=== PATIENT | male | born 1960 | race Caucasian/White ===

== ENCOUNTER 2016-11-21 12:32 | Inpatient (IN) | payer BC ==
[2016-11-21 12:32] VITALS: BMI 28.3
[2016-11-21] MEDS ORDERED: Sodium Chloride 0.9% 1,000 ML IV ONE ×2 (13:31→17:21)
[2016-11-21] MEDS ORDERED: Iohexol 240 (50 ml) PO STA (13:31)
[2016-11-21] MEDS ORDERED: Iohexol 240 (50 ml) ONE (13:40)
[2016-11-21] MEDS ORDERED: Sodium Chloride 0.9% 1,000 ML ONE ×2 (13:41→17:25)
[2016-11-21 14:21] LABS: VENOUS BLOOD GAS BASE EXCESS 4.4 mmol/L (0.0-2.0); VENOUS BLOOD GAS PCO2 52 mmHg (40-60); VENOUS BLOOD PH 7.38 (7.32-7.43)
[2016-11-21 15:51] LABS: BASO # 0.1 K/uL (0.0-0.2); BASO % 0.6 % (0.0-2.0); EOS # 0.1 K/uL (0.0-0.7); EOS % 0.5 % (0.0-4.0); HEMATOCRIT 46.7 % (35.0-51.0); LYMPH # 1.4 K/uL (1.0-4.3); LYMPH % 9.3 % (20.0-40.0); MEAN CELL VOLUME 89.4 fL (80.0-94.0); MEAN CORPUSCULAR HEMOGLOBIN 29.3 pg (27.0-31.0); MEAN CORPUSCULAR HGB CONC 32.8 g/dL (33.0-37.0); MEAN PLATELET VOLUME 8.1 fL (7.2-11.7); MONO # 0.9 K/uL (0.0-0.8); MONO % 6.3 % (0.0-10.0); RED CELL DISTRIBUTION WIDTH 15.7 % (11.5-14.5)
[2016-11-21 16:02] LABS: PLATELET COUNT 337 K/uL (130-400); WHITE BLOOD COUNT 14.6 K/uL (4.8-10.8)
[2016-11-21 16:03] LABS: CHLORIDE 101 mmol/L (98-107); POTASSIUM 3.7 mmol/L (3.6-5.2); SODIUM 141 mmol/L (132-148)
[2016-11-21 16:05] LABS: ALB/GLOB RATIO 1.3 (1.0-2.1); ALKALINE PHOSPHATASE 81 U/L (38-126); AST/SGOT 40 U/L (17-59); BILIRUBIN,TOTAL 1.3 mg/dL (0.2-1.3); CARBON DIOXIDE 26 mmol/L (22-30); GFR AFRICAN-AMERICAN > 60; TOTAL PROTEIN 8.1 g/dL (6.3-8.3)
[2016-11-21 16:06] LABS: ALT/SGPT 31 U/L (21-72); BLOOD UREA NITROGEN 18 mg/dL (9-20); CALCIUM 9.2 mg/dl (8.6-10.4); GLUCOSE,RANDOM 110 mg/dL (75-110)
[2016-11-21] MEDS ORDERED: Morphine 4 MG/ML VIAL ONE (16:19)
[2016-11-21 16:20] LABS: RBC URINE 3 /hpf (0-3); URINE BILIRUBIN NEGATIVE (NEGATIVE); URINE BLOOD NEGATIVE (NEGATIVE); URINE COLOR Yellow (YELLOW); URINE GLUCOSE (UA) NORMAL (Normal); URINE KETONE 1+ mg/dL (NEGATIVE); URINE LEUKOCYTE ESTERASE NEG Leu/uL (Negative); URINE PROTEIN NEGATIVE (NEGATIVE); URINE UROBILINOGEN NORMAL mg/dL (0.2-1.0); WBC URINE 2 /hpf (0-5)
[2016-11-21] MEDS ORDERED: Iohexol 350mg/ml 100 ML ONE (16:50)
--- NOTE | 2016-11-21 17:14 | CT ---
PROCEDURE: CT Abdomen and Pelvis with contrast HISTORY: abd pain, vomiting, diarrhea COMPARISON: Comparison is made to the previous study dated 02/11/2016 TECHNIQUE: Contrast dose: 100 mL Omnipaque Radiation dose: Total exam DLP = 402.3 mGy-cm. This CT exam was performed using one or more of the following dose reduction techniques: Automated exposure control, adjustment of the mA and/or kV according to patient size, and/or use of iterative reconstruction technique. FINDINGS: LOWER THORAX: Unremarkable. LIVER: Unremarkable. No gross lesion or ductal dilatation. GALLBLADDER AND BILE DUCTS: Unremarkable. PANCREAS: Unremarkable. No gross lesion or ductal dilatation. SPLEEN: Unremarkable. ADRENALS: Unremarkable. No mass. KIDNEYS AND URETERS: Unremarkable. No hydronephrosis. No solid mass. VASCULATURE: Unremarkable. No aortic aneurysm. BOWEL: Agzgrx-op-ubmxomkiug dilated small bowel loops in the mid and upper abdomen demonstrate mild to moderate wall thickening. The distal small bowel loops are partially collapse. Findings could represent enteritis. The possibility of low-grade bowel obstruction is less likely but not totally excluded. No evidence of pneumatosis. No evidence of colitis. APPENDIX: Normal appendix. PERITONEUM: Small amount of free fluid seen in the lower abdomen and pelvis. LYMPH NODES: Unremarkable. No enlarged lymph nodes. BLADDER: Unremarkable. REPRODUCTIVE: Prostate is mildly enlarged. BONES: No acute fracture. OTHER FINDINGS: None. IMPRESSION: Dilated proximal and mid small bowel loops demonstrate shgk-[id number] wall thickening. The distal small bowel is partially collapse. Findings could represent enteritis versus low-grade bowel obstruction. If clinically warranted follow-up study may be obtained. Small amount of free fluid in the lower abdomen and upper pelvis. Otherwise no evidence of acute pathology in the abdomen and pelvis.
--- NOTE | 2016-11-21 18:12 | C.PDOC ---
Time Seen by Provider: 11/21/16 13:09 Chief Complaint (Nursing): Abdominal Pain History Per: Patient Onset/Duration Of Symptoms: Hrs (since last night) Current Symptoms Are (Timing): Still Present Severity: Severe Location Of Pain/Discomfort: Diffuse Quality Of Discomfort: "Pain" Associated Symptoms: Nausea, Vomiting, Diarrhea Alleviating Factors: None Last Bowel Movement: Today Recent travel outside of the [place]: Yes (Just returned from [facility] last night) Additional History Per: Prior Records Past Medical History Reviewed: Historical Data, Nursing Documentation, Vital Signs Vital Signs: Last Vital Signs Temp 98.2 F 11/21/16 12:42 Pulse 104 H 11/21/16 14:20 Resp 20 11/21/16 14:20 BP 144/90 11/21/16 12:42 Pulse Ox 96 11/21/16 14:20 - Medical History PMH: Arthritis, Hypercholesterolemia, Rheumatoid Arthritis Surgical History: No Surg Hx - [facility] Procedures INTRODUCTION OF SERUM/TOX/VACCINE INTO MUSCLE, PERC APPROACH (02/11/16) Family History: States: Unknown Family Hx - Social History Hx Alcohol Use: No Hx Substance Use: No - Immunization History Hx Tetanus Toxoid Vaccination: No Hx Influenza Vaccination: No Hx Pneumococcal Vaccination: No Review Of Systems Except As Marked, All Systems Reviewed And Found Negative. Constitutional: Negative for: Fever Cardiovascular: Negative for: Chest Pain Respiratory: Positive for: Cough. Negative for: Shortness of Breath, Hemoptysis Gastrointestinal: Positive for: Nausea, Vomiting, Abdominal Pain, Diarrhea, Hematemesis (coffee grounds?) Genitourinary: Negative for: Dysuria Musculoskeletal: Negative for: Neck Pain, Back Pain Skin: Negative for: Rash Neurological: Negative for: Weakness, Numbness, Seizures, Altered Mental Status Physical Exam - Physical Exam Appears: Other (Uncomfortable) Skin: Normal Color, Warm, Dry Head: Atraumatic Eye(s): bilateral: PERRL, EOMI Neck: Normal ROM, Supple Cardiovascular: Rhythm Regular Respiratory: Normal Breath Sounds, No Accessory Muscle Use Gastrointestinal/Abdominal: Tenderness (nonspecific), Distention Back: No CVA Tenderness Extremity: Normal ROM Neurological/Psych: Oriented x3, Normal Motor, Normal Sensation ED Course And Treatment - Laboratory Results Result Diagrams: 11/21/16 15:42 11/21/16 15:42 O2 Sat by Pulse Oximetry: 96 Pulse Ox Interpretation: Normal - CT Scan/US CT abdomen/pelvis Other Rad Studies (CT/US): Read By Radiologist, Radiology Report Reviewed CT/US Interpretation: IMPRESSION: Dilated proximal and mid small bowel loops demonstrate uwju-ur-nkndeasc wall thickening. The distal small bowel is partially collapse. Findings could represent enteritis versus low-grade bowel obstruction. If clinically warranted follow-up study may be obtained. Small amount of free fluid in the lower abdomen and upper pelvis. Otherwise no evidence of acute pathology in the abdomen and pelvis. Progress - Interventions Interventions:: Observation, Intravenous fluid - Medications Administered Intravenous: Antiemetic, Opiate, Other (PPI) - Data Reviewed Data Reviewed: Lab, Diagnostic imaging, Old records - Patient Status Patient status: Partially improved - Continuity of Care Discussed patient case with:: Patient, Family-HIPPA compliant, ED Nurse, Covering for PMD - Patient Plan Patient Plan: Admission Disposition Discussed With : Edel Barton Comment: He accepted pt on his service. Doctor Will See Patient In The: Hospital Counseled Patient/Family Regarding: Studies Performed, Diagnosis - Disposition Disposition: HOSPITALIZED Disposition Time: 18:14 Condition: FAIR - Clinical Impression Clinical Impression: Abdominal pain, Coffee ground emesis
[2016-11-21] MEDS ORDERED: Alum-Mag Hydrox-Simethicone Susp (30 mL) PO STA (19:21)
[2016-11-21] MEDS ORDERED: Dextrose 5%/0.45% NS 1,000 ML IV SCH (20:15)
[2016-11-21] MEDS: metroNIDAZOLE IV 500 mg/100 ml 100 ML IVPB SCH (22:02)
[2016-11-21 23:57] LABS: LARGE PLATELETS PRESENT; NEUTROPHIL 75 % (50-75); REACTIVE LYMPHOCYTES 1 % (0-0); SMUDGE CELLS PRESENT; TOTAL CELLS COUNTED 100
[2016-11-22 06:23] LABS: HEMATOCRIT 37.7 % (35.0-51.0); MEAN CORPUSCULAR HGB CONC 32.1 g/dL (33.0-37.0); MEAN PLATELET VOLUME 8.1 fL (7.2-11.7)
[2016-11-22 06:33] LABS: ALB/GLOB RATIO 1.2 (1.0-2.1); ALKALINE PHOSPHATASE 54 U/L (38-126); ALT/SGPT 21 U/L (21-72); AST/SGOT 35 U/L (17-59); BILIRUBIN,TOTAL 1.1 mg/dL (0.2-1.3); BLOOD UREA NITROGEN 13 mg/dL (9-20); CALCIUM 7.7 mg/dl (8.6-10.4); CARBON DIOXIDE 23 mmol/L (22-30); CHLORIDE 106 mmol/L (98-107); GFR AFRICAN-AMERICAN > 60; GLUCOSE,RANDOM 96 mg/dL (75-110); POTASSIUM 3.3 mmol/L (3.6-5.2); SODIUM 138 mmol/L (132-148); TOTAL PROTEIN 5.9 g/dL (6.3-8.3)
[2016-11-22 06:38] LABS: MEAN CELL VOLUME 89.6 fL (80.0-94.0); MEAN CORPUSCULAR HEMOGLOBIN 28.8 pg (27.0-31.0); RED CELL DISTRIBUTION WIDTH 15.5 % (11.5-14.5); WHITE BLOOD COUNT 11.9 K/uL (4.8-10.8)
--- NOTE | 2016-11-22 09:15 | CP.PCM.CON ---
<Kit Cueva - Last Filed: 11/22/16 09:21> History of Present Illness - History of Present Illness History of Present Illness: PGY4 GI Fellow Consult Note Patient is a 56yo male with PMHx significant for rheumatoid arthritis on Humira/ MTX, dyslipidemia who presented to the ED with one day of abdominal pain, nausea /vomiting/diarrhea. The patient has recently returned from a one week trip to [facility]. He states that he had been unable to eat prior to his flight home from [facility]. During the flight he developed abdominal discomfort, bloating. On arrival home, he became nauseated and vomiting one time. Pain persisted and he developed loose/watery diarrhea. Over the span of the past 24H he admits to upwards of ten episodes of diarrhea with stool becoming darker in color with each episode. Currently, he admits to epigastric discomfort, generalized weakness and subjective fever. He does admit to recent antibiotic use for an abscess that developed on her left chest wall prior to departure for [facility]. He took this for one week. Denies any sick contacts at home. PMHx: See HPI PSHx: Denies FHx: Father - CAD/CABG Social: Denies tobacco, EtOH and illicit drug use Endo: EGD/Colon - 02/2016 - HP negative gastritis; 4mm AC polyp (tubular adenoma) Review of Systems - Constitutional Constitutional: Fever, Malaise. absent: Anorexia, Chills - EENT Eyes: absent: Change in Vision Nose/Mouth/Throat: absent: Sore Throat - Cardiovascular Cardiovascular: absent: Chest Pain, Dyspnea, Leg Edema - Respiratory Respiratory: absent: Cough, Dyspnea, Excessive Mucous Production - Gastrointestinal Gastrointestinal: Abdominal Pain, Bloating, Cramping, Diarrhea, Heartburn, Loose Stools, Nausea, Vomiting. absent: Constipation, Dyspepsia, Dysphagia, Hematemesis, Hematochezia - Genitourinary Genitourinary: absent: Dysuria, Urinary Frequency, Urinary Urgency - Musculoskeletal Musculoskeletal: absent: Back Pain, Neck Pain - Integumentary Integumentary: absent: New Lesions, Rash - Neurological Neurological: absent: Dizziness, Numbness, Focal Weakness - Psychiatric Psychiatric: absent: Anxiety, Depression - Endocrine Endocrine: absent: Polydipsia, Polyphagia, Polyuria - Hematologic/Lymphatic Hematologic: absent: Easy Bleeding, Easy Bruising, Lymphadenopathy Past Patient History - Infectious Disease Hx of Infectious Diseases: None - Past Medical History & Family History Past Medical History?: Yes - Past Social History Smoking Status: Never Smoked - CARDIAC Hx Hypercholesterolemia: Yes - PULMONARY Hx Respiratory Disorders: No - NEUROLOGICAL Hx Neurological Disorder: No - HEENT Hx HEENT Problems: No - ENDOCRINE/METABOLIC Hx Endocrine Disorders: No - HEMATOLOGICAL/ONCOLOGICAL Hx Blood Disorders: No - INTEGUMENTARY Hx Dermatological Problems: No - MUSCULOSKELETAL/RHEUMATOLOGICAL Hx Arthritis: Yes Hx Falls: No Hx Rheumatoid Arthritis: Yes - GASTROINTESTINAL Hx Gastrointestinal Disorders: Yes Hx Hemorrhoids: Yes - GENITOURINARY/GYNECOLOGICAL Hx Genitourinary Disorders: No - PSYCHIATRIC Hx Substance Use: No - SURGICAL HISTORY Hx Surgeries: No - ANESTHESIA Hx Anesthesia: No Hx Anesthesia Reactions: No Meds Allergies/Adverse Reactions: Allergies Allergy/AdvReac Type Severity Reaction Status Date / Time No Known Allergies Allergy Verified 11/21/16 12:49 - Medications Medications: Current Medications Dextrose/Sodium Chloride (Dextrose 5%/0.45% Ns 1000 Ml) 1,000 mls @ 120 mls/hr IV .Q8H20M [facility] Last Admin: 11/21/16 20:50 Dose: 120 mls/hr Metronidazole (Flagyl) 100 mls @ 100 mls/hr IVPB Q8 [facility] Last Admin: 11/21/16 22:02 Dose: 100 mls/hr Ceftriaxone Sodium 1 gm/ (Sodium Chloride) 100 mls @ 100 mls/hr IVPB DAILY [facility] Ketorolac Tromethamine (Toradol) 30 mg IVP Q6 PRN PRN Reason: pain Pneumococcal Polyvalent Vaccine (Pneumovax 23 Vaccine) 0.5 ml IM .ONCE ONE Stop: 11/23/16 10:01 Potassium Chloride (K-Dur 20 Meq Er Tab) 40 meq PO ONCE ONE Stop: 11/22/16 10:01 Physical Exam - Constitutional Appears: Non-toxic, No Acute Distress - Eye Exam Eye Exam: EOMI, PERRL - ENT Exam ENT Exam: Mucous Membranes Moist - Respiratory Exam Respiratory Exam: Clear to Auscultation Bilateral. absent: Rales, Rhonchi, Wheezes - Cardiovascular Exam Cardiovascular Exam: RRR, +S1, +S2 - GI/Abdominal Exam GI & Abdominal Exam: Normal Bowel Sounds, Soft. absent: Distended, Firm, Guarding, Organomegaly, Rigid, Tenderness - Extremities Exam Extremities exam: Positive for: normal inspection. Negative for: pedal edema - Neurological Exam Neurological exam: Alert, Oriented x3 - Psychiatric Exam Psychiatric exam: Normal Affect, Normal Mood - Skin Skin Exam: Dry, Warm Results - Vital Signs Recent Vital Signs: Last Vital Signs Temp 97.4 F L 11/22/16 08:10 Pulse 68 11/22/16 08:10 Resp 20 11/22/16 08:10 BP 115/69 11/22/16 08:10 Pulse Ox 96 11/22/16 08:10 - Labs Result Diagrams: 11/22/16 06:32 11/22/16 04:00 Labs: Laboratory Results - last 24 hr 11/22/16 11/22/16 04:00 06:32 WBC 11.9 H RBC 4.21 L Hgb 12.1 D Hct 37.7 MCV 89.6 MCH 28.8 MCHC 32.1 L RDW 15.5 H Plt Count 260 MPV 8.1 Sodium 138 Potassium 3.3 L Chloride 106 Carbon Dioxide 23 Anion Gap 12 BUN 13 Creatinine 0.8 Est GFR ( Amer) > 60 Est GFR (Non-Af Amer) > 60 Random Glucose 96 Calcium 7.7 L Total Bilirubin 1.1 AST 35 ALT 21 D Alkaline Phosphatase 54 Total Protein 5.9 L Albumin 3.2 L D Globulin 2.6 Albumin/Globulin Ratio 1.2 Assessment & Plan - Assessment and Plan (Free Text) Assessment: Patient is a 56yo male with PMHx significant for rheumatoid arthritis on Humira/ MTX, dyslipidemia who presented to the ED with one day of abdominal pain, nausea /vomiting/diarrhea. -Acute abdominal pain/nausea/vomiting/diarrhea - c/w acute enteritis, suspect viral etiology, must R/O other sources given recent travel -RA on Humira/MTX -Dyslipidemia Plan: -Check stool studies: stool cx, C diff (recent ABX use), O&P (given recent travel) -Pt on IV ABX: Ceftriaxone/Flagyl -Analgesia/antiemetics per primary service -Liquid diet as tolerated -Continue conservative therapy for now -Continue to monitor clinical course - Date & Time Date: 11/22/16 Time: 06:30 <Mikhail Rangel - Last Filed: 11/22/16 09:46> Meds - Medications Medications: Current Medications Dextrose/Sodium Chloride (Dextrose 5%/0.45% Ns 1000 Ml) 1,000 mls @ 120 mls/hr IV .Q8H20M [facility] Last Admin: 11/21/16 20:50 Dose: 120 mls/hr Metronidazole (Flagyl) 100 mls @ 100 mls/hr IVPB Q8 [facility] Last Admin: 11/21/16 22:02 Dose: 100 mls/hr Ceftriaxone Sodium 1 gm/ (Sodium Chloride) 100 mls @ 100 mls/hr IVPB DAILY [facility] Ketorolac Tromethamine (Toradol) 30 mg IVP Q6 PRN PRN Reason: pain Pneumococcal Polyvalent Vaccine (Pneumovax 23 Vaccine) 0.5 ml IM .ONCE ONE Stop: 11/23/16 10:01 Potassium Chloride (K-Dur 20 Meq Er Tab) 40 meq PO ONCE ONE Stop: 11/22/16 10:01 Results - Vital Signs Recent Vital Signs: Last Vital Signs Temp 97.4 F L 11/22/16 08:10 Pulse 68 11/22/16 08:10 Resp 20 11/22/16 08:10 BP 115/69 11/22/16 08:10 Pulse Ox 96 11/22/16 08:10 - Labs Result Diagrams: 11/22/16 06:32 11/22/16 04:00 Labs: Laboratory Results - last 24 hr 11/22/16 11/22/16 04:00 06:32 WBC 11.9 H RBC 4.21 L Hgb 12.1 D Hct 37.7 MCV 89.6 MCH 28.8 MCHC 32.1 L RDW 15.5 H Plt Count 260 MPV 8.1 Sodium 138 Potassium 3.3 L Chloride 106 Carbon Dioxide 23 Anion Gap 12 BUN 13 Creatinine 0.8 Est GFR ( Amer) > 60 Est GFR (Non-Af Amer) > 60 Random Glucose 96 Calcium 7.7 L Total Bilirubin 1.1 AST 35 ALT 21 D Alkaline Phosphatase 54 Total Protein 5.9 L Albumin 3.2 L D Globulin 2.6 Albumin/Globulin Ratio 1.2 Attending/Attestation - Attestation I have personally seen and examined this patient.: Yes I have fully participated in the care of the patient.: Yes I have reviewed all pertinent clinical information: Yes Notes (Text): 11/22/16 09:40 I have seen and examined patient with GI fellow. Agree with above documentation with the following additions. In brief, this is a 56 year old male with history of rheumatoid arthritis on Humira/MTX, hyperlipidemia who presents to hospital with complaint of sudden onset abdominal pain, nausea, and vomiting which began yesterday on a return flight from [facility]. He was not feeling well for a few days prior to flight and then began to develop diffuse crampy 5/10 intensity abdominal pain which was worse following meal consumption. This was accompanied by multiple episodes of dark colored loose bowel movements and green colored emesis. He denies fever/chills, weight loss, or sick contacts. He does admit to recent antibiotic use prior to travel to [facility] for treatment of skin abscess. He had an EGD/colonoscopy in February 2016 which showed gastritis (biopsies negative on pathology) and colon polyp (TA). Rheumatoid arthritis on Humira / Methotrexate Hyperlipidemia Abdominal pain, vomiting, diarrhea CT imaging reviewed by me showing dilated small bowel loops with mild mural wall thickening - suggestive of enteritis - Clear liquid diet as tolerated - Continue to monitor H/H - Obtain stool studies (culture, O/P, c-difficile given history of recent antibiotic use) - Anti emetic therapy PRN - Will continue to monitor patient clinical course
[2016-11-22] MEDS ORDERED: Potassium Chloride 20 mEq ER Tab PO ONE (10:00)
--- NOTE | 2016-11-22 11:04 | CP.PCM.HP ---
History of Present Illness - History of Present Illness History of Present Illness: Patient is a 56yo male with PMHx significant for rheumatoid arthritis on Humira/ MTX, dyslipidemia who presented to the ED with one day of abdominal pain, nausea /vomiting/diarrhea. The patient has recently returned from a one week trip to [facility]. He states that he had been unable to eat prior to his flight home from [facility]. During the flight he developed abdominal discomfort, bloating. On arrival home, he became nauseated and vomiting one time. Pain persisted and he developed loose/watery diarrhea. COMPREHENSIVE HISTORY & PHYSICAL EXAM HPI PT. ADMITTED WITH WATERY DIARRHEA WITH CT SCAN SHOWING ENTERITIS WITH DILIATED LOOPS OF S. BOWEL . Patient is a 56yo male with PMHx significant for rheumatoid arthritis on Humira/ MTX, dyslipidemia who presented to the ED with one day of abdominal pain, nausea /vomiting/diarrhea. The patient has recently returned from a one week trip to [facility]. He states that he had been unable to eat prior to his flight home from [facility]. During the flight he developed abdominal discomfort, bloating. On arrival home, he became nauseated and vomiting one time. Pain persisted and he developed loose/watery diarrhea. PAST HIST. PERSONAL HIST: Smoking. N Alcohol. N Allergy N Travel_- . FAMILY HIST : ROS : Constitutional: Negative for weight change, chills, night sweats, fatigue and usage of assist device. Eyes: Negative for redness, swelling, itching, discharge, vision changes, blurry vision, double vision, glaucoma, cataracts, Ears: Negative for hearing loss, ringing, , tinnitus, vertigo Nose: Negative for rhinorrhea, stuffiness, sniffing, itching, postnasal drip, discoloration, nasal congestion and epistaxis. Throat: Negative for throat clearing, sore throat, hoarseness, difficulty swallowing and difficulty speaking. Respiratory: Negative for cough, chest tightness, sputum or phlegm, chronic cough, hemoptysis, wheezing, snoring at night, pleuritic chest pain and daytime somnolence. Cardiovascular: Negative for chest pain, palpitations, orthopnea, PND, Edema of legs, leg cramps, angina, claudication, , irregular heartbeat, Neurology: Negative for irritability, muscle weakness, numbness and tingling, seizures, tremors, migraines, slurred speech, syncope, memory loss, mood changes , recurrent headaches Gastrointestinal: ABOVE Genitourinary: Negative for frequent urination, hematuria, discharge, incontinence, urinary retention, frequent UTI, Psychiatric: Negative for depression, anxiety/panic, suicidal tendencies, Musculoskeletal: Negative for swollen joints, back pain, , neck pain, morning stiffness of joints, . Skin: Negative for rash, ulcers, itching, dry skin and pigmented lesions. P/E: Constitutional: Appears stated age and in no apparent distress. Head: Normocephalic. Ears: External ear canals patent without inflammation. Tympanic membranes intact with normal light reflex and landmark. Eyes: Pupils are central, bilaterally equal, symmetrical and reacts to light with normal movements and no icterus or pallor. Nose: External nares are patent. Mucosa is pink Mouth-Throat: Good general appearance and condition. No post-pharyngeal/oropharyngeal erythema and tonsillar hypertrophy. Good dental hygiene. Neck-Lymphatic: Neck is supple with normal ROM, no thyromegaly, lymph nodes or masses. JVD is normal with no carotid bruit. Lungs: Clear to percussion and auscultation with bilateral normal air entry. Cardiovascular: S1 and S2 are normal with no murmurs, gallops and rub. GI Exam TENDER ALL OVER NO L/S Neurology: Higher function and all cranial nerves intact, with no gross motor or sensory deficit. Superficial and deep reflexes are normal with downwards planters. No cerebellar deficit with normal gait. Musculoskeletal: No tender spots with normal curvature of the spine with no swelling or restricted ROM of the small and large joints. Extremities: Homans sign absent. Intact pulses with no pitting edema, calf tenderness or skin color changes. Skin: No rash, eruptions or abnormal skin pigmentation LAB/RADIOLOGY: ASSESMENT : R/O C. DIFF PARTIAL SM OBSTRUCTION RA PLAN: Present on Admission - Present on Admission Any Indicators Present on Admission: No Past Patient History - Infectious Disease Hx of Infectious Diseases: None - Past Medical History & Family History Past Medical History?: Yes - Past Social History Smoking Status: Never Smoked - CARDIAC Hx Hypercholesterolemia: Yes - PULMONARY Hx Respiratory Disorders: No - NEUROLOGICAL Hx Neurological Disorder: No - HEENT Hx HEENT Problems: No - ENDOCRINE/METABOLIC Hx Endocrine Disorders: No - HEMATOLOGICAL/ONCOLOGICAL Hx Blood Disorders: No - INTEGUMENTARY Hx Dermatological Problems: No - MUSCULOSKELETAL/RHEUMATOLOGICAL Hx Arthritis: Yes Hx Falls: No Hx Rheumatoid Arthritis: Yes - GASTROINTESTINAL Hx Gastrointestinal Disorders: Yes Hx Hemorrhoids: Yes - GENITOURINARY/GYNECOLOGICAL Hx Genitourinary Disorders: No - PSYCHIATRIC Hx Substance Use: No - SURGICAL HISTORY Hx Surgeries: No - ANESTHESIA Hx Anesthesia: No Hx Anesthesia Reactions: No Meds Home Medications: Home Medication List Medication Instructions Recorded Confirmed Type Metronidazole [Flagyl] 500 mg PO Q8 5 Days 11/23/16 Rx Allergies/Adverse Reactions: Allergies Allergy/AdvReac Type Severity Reaction Status Date / Time No Known Allergies Allergy Verified 11/21/16 12:49 Results - Vital Signs Recent Vital Signs: Last Vital Signs Temp 97.4 F L 11/22/16 08:10 Pulse 68 11/22/16 08:10 Resp 20 11/22/16 08:10 BP 115/69 11/22/16 08:10 Pulse Ox 96 11/22/16 08:10 - Labs Result Diagrams: 11/23/16 14:11 11/22/16 04:00 Labs: Laboratory Results - last 24 hr 11/22/16 11/22/16 04:00 06:32 WBC 11.9 H RBC 4.21 L Hgb 12.1 D Hct 37.7 MCV 89.6 MCH 28.8 MCHC 32.1 L RDW 15.5 H Plt Count 260 MPV 8.1 Sodium 138 Potassium 3.3 L Chloride 106 Carbon Dioxide 23 Anion Gap 12 BUN 13 Creatinine 0.8 Est GFR ( Amer) > 60 Est GFR (Non-Af Amer) > 60 Random Glucose 96 Calcium 7.7 L Total Bilirubin 1.1 AST 35 ALT 21 D Alkaline Phosphatase 54 Total Protein 5.9 L Albumin 3.2 L D Globulin 2.6 Albumin/Globulin Ratio 1.2
[2016-11-22] MEDS: Potassium Chloride 20 mEq ER Tab PO SCH (11:24)
[2016-11-22] MEDS: metroNIDAZOLE IV 500 mg/100 ml 100 ML IVPB SCH ×2 (14:28→22:32)
[2016-11-22] MEDS ORDERED: Home Med 1 UNIT PO SCH (19:44)
[2016-11-22] MEDS ORDERED: Home Med 1 UNIT SC SCH (19:45)
[2016-11-23] MEDS ORDERED: Pneumococcal 23-Valent Vaccine IM ONE (10:00)
[2016-11-23] MEDS: Potassium Chloride 20 mEq ER Tab PO SCH (10:52)
--- NOTE | 2016-11-23 11:28 | CP.PCM.PN ---
<Kit Cueva - Last Filed: 11/23/16 11:20> Subjective - Date & Time of Evaluation Date of Evaluation: 11/23/16 Time of Evaluation: 06:00 - Subjective Subjective: PGY4 GI Fellow Progress Note Patient seen and examined bedside this morning. The patient states that he is feeling better today and is eager to eat a more substantial meal. He admits to 3 -4 episodes of formed/loose stool in the past 24H. States stool is still dark in color. Denies recent use of Pepto Bismol or iron supplementation. Denies any nausea, vomiting, abdominal pain. 12 system ROS performed and negative except where stated. Objective - Vital Signs/Intake and Output Vital Signs (last 24 hours): Temp Pulse Resp BP Pulse Ox 97.9 F 78 18 118/76 95 11/23/16 08:00 11/23/16 08:00 11/23/16 08:00 11/23/16 08:00 11/23/16 08:00 Intake and Output: 11/23/16 11/23/16 06:59 18:59 Intake Total 400 Balance 400 - Medications Medications: Current Medications Home Med (Home Med) 1 unit PO [facility]WK [facility] Home Med (Home Med) 1 unit SC [facility] Dextrose/Sodium Chloride (Dextrose 5%/0.45% Ns 1000 Ml) 1,000 mls @ 120 mls/hr IV .Q8H20M [facility] Last Infusion: 11/23/16 11:06 Dose: 120 mls/hr Metronidazole (Flagyl) 100 mls @ 100 mls/hr IVPB Q8 [facility] Last Admin: 11/22/16 22:32 Dose: 100 mls/hr Ceftriaxone Sodium 1 gm/ (Sodium Chloride) 100 mls @ 100 mls/hr IVPB DAILY [facility] Last Admin: 11/23/16 10:52 Dose: 100 mls/hr Ketorolac Tromethamine (Toradol) 30 mg IVP Q6 PRN PRN Reason: pain Potassium Chloride (K-Dur 20 Meq Er Tab) 40 meq PO DAILY [facility] Stop: 11/24/16 11:31 Last Admin: 11/23/16 10:52 Dose: 40 meq - Labs Labs: 11/22/16 06:32 11/22/16 04:00 PT 11.2 SECONDS (9.7-12.2) 11/21/16 15:42 INR 1.0 11/21/16 15:42 APTT 30 SECONDS (21-34) 11/21/16 15:42 - Constitutional Appears: Non-toxic, No Acute Distress - Eye Exam Eye Exam: EOMI, PERRL - ENT Exam ENT Exam: Mucous Membranes Moist - Respiratory Exam Respiratory Exam: Clear to Ausculation Bilateral. absent: Rales, Rhonchi, Wheezes - Cardiovascular Exam Cardiovascular Exam: RRR, +S1, +S2 - GI/Abdominal Exam GI & Abdominal Exam: Soft, Normal Bowel Sounds. absent: Distended, Firm, Guarding, Rigid, Tenderness, Organomegaly - Neurological Exam Neurological Exam: Alert, Awake, Oriented x3 - Psychiatric Exam Psychiatric exam: Normal Affect, Normal Mood - Skin Skin Exam: Dry, Warm Assessment and Plan - Assessment and Plan (Free Text) Assessment: Patient is a 56yo male with PMHx significant for rheumatoid arthritis on Humira/ MTX, dyslipidemia who presented to the ED with one day of abdominal pain, nausea /vomiting/diarrhea. -Acute abdominal pain/nausea/vomiting/diarrhea - c/w acute enteritis, suspect viral etiology, must R/O other sources given recent travel -RA on Humira/MTX -Dyslipidemia Plan: -Symptoms improving -CD toxin negative -Stool cx, O&P pending -Pt on IV ABX: Ceftriaxone/Flagyl -Would avoid NSAIDs; currently getting Toradol -Diet advanced, tolerated -Continue conservative therapy for now, monitor clinical course <Bradford Ramos - Last Filed: 11/23/16 13:16> Objective - Vital Signs/Intake and Output Vital Signs (last 24 hours): Temp Pulse Resp BP Pulse Ox 97.9 F 78 18 118/76 95 11/23/16 08:00 11/23/16 08:00 11/23/16 08:00 11/23/16 08:00 11/23/16 08:00 Intake and Output: 11/23/16 11/23/16 06:59 18:59 Intake Total 400 Balance 400 - Medications Medications: Current Medications Home Med (Home Med) 1 unit PO QWK [facility] Home Med (Home Med) 1 unit SC QWK [facility] Dextrose/Sodium Chloride (Dextrose 5%/0.45% Ns 1000 Ml) 1,000 mls @ 120 mls/hr IV .Q8H20M [facility] Last Infusion: 11/23/16 11:06 Dose: 120 mls/hr Metronidazole (Flagyl) 100 mls @ 100 mls/hr IVPB Q8 [facility] Last Admin: 11/23/16 13:06 Dose: 100 mls/hr Ceftriaxone Sodium 1 gm/ (Sodium Chloride) 100 mls @ 100 mls/hr IVPB DAILY [facility] Last Admin: 11/23/16 10:52 Dose: 100 mls/hr Ketorolac Tromethamine (Toradol) 30 mg IVP Q6 PRN PRN Reason: pain Pantoprazole Sodium (Protonix Ec Tab) 40 mg PO DAILY [facility] Last Admin: 11/23/16 13:01 Dose: 40 mg Potassium Chloride (K-Dur 20 Meq Er Tab) 40 meq PO DAILY [facility] Stop: 11/24/16 11:31 Last Admin: 11/23/16 10:52 Dose: 40 meq - Labs Labs: 11/22/16 06:32 11/22/16 04:00 PT 11.2 SECONDS (9.7-12.2) 11/21/16 15:42 INR 1.0 11/21/16 15:42 APTT 30 SECONDS (21-34) 11/21/16 15:42 Attending/Attestation - Attestation I have personally seen and examined this patient.: Yes I have fully participated in the care of the patient.: Yes I have reviewed all pertinent clinical information, including history, physical exam and plan: Yes Notes (Text): Patient seen and examined with GI fellow. Agree with his note as documented above with the following additions/exceptions. This is a 56 year old male with PMHx significant for rheumatoid arthritis on adalimumab/MTX, dyslipidemia who is admitted with abdominal pain, nausea/vomiting and diarrhea with enteritis on CT. He is symptomatically improved without further emesis and abdominal pain improved. Complains of dark stool. Cdiff negative. Follow up stool studies, advance diet as tolerated. Continue supportive care, monitor H/H. Pain control /antiemetic therapy as needed. 11/23/16 13:14
[2016-11-23] MEDS ORDERED: Pantoprazole 40 mg EC Tab PO SCH (11:45)
[2016-11-23] MEDS: metroNIDAZOLE IV 500 mg/100 ml 100 ML IVPB SCH (13:06)
--- NOTE | 2016-11-23 13:09 | CP.PCM.PN ---
Subjective - Date & Time of Evaluation Date of Evaluation: 11/23/16 Time of Evaluation: 13:08 - Subjective Subjective: NO FURTHER ABD. PAIN OR DISTENSION DIET UPENDED C. DIFF NEG Objective - Vital Signs/Intake and Output Vital Signs (last 24 hours): Temp Pulse Resp BP Pulse Ox 97.9 F 78 18 118/76 95 11/23/16 08:00 11/23/16 08:00 11/23/16 08:00 11/23/16 08:00 11/23/16 08:00 Intake and Output: 11/23/16 11/23/16 11:59 23:59 Intake Total 400 Balance 400 - Medications Medications: Current Medications Home Med (Home Med) 1 unit PO QWK [facility] Home Med (Home Med) 1 unit SC QWK [facility] Dextrose/Sodium Chloride (Dextrose 5%/0.45% Ns 1000 Ml) 1,000 mls @ 120 mls/hr IV .Q8H20M [facility] Last Infusion: 11/23/16 11:06 Dose: 120 mls/hr Metronidazole (Flagyl) 100 mls @ 100 mls/hr IVPB Q8 [facility] Last Admin: 11/23/16 13:06 Dose: 100 mls/hr Ceftriaxone Sodium 1 gm/ (Sodium Chloride) 100 mls @ 100 mls/hr IVPB DAILY [facility] Last Admin: 11/23/16 10:52 Dose: 100 mls/hr Ketorolac Tromethamine (Toradol) 30 mg IVP Q6 PRN PRN Reason: pain Pantoprazole Sodium (Protonix Ec Tab) 40 mg PO DAILY [facility] Last Admin: 11/23/16 13:01 Dose: 40 mg Potassium Chloride (K-Dur 20 Meq Er Tab) 40 meq PO DAILY [facility] Stop: 11/24/16 11:31 Last Admin: 11/23/16 10:52 Dose: 40 meq - Labs Labs: 11/22/16 06:32 11/22/16 04:00 PT 11.2 SECONDS (9.7-12.2) 11/21/16 15:42 INR 1.0 11/21/16 15:42 APTT 30 SECONDS (21-34) 11/21/16 15:42
[2016-11-23 14:23] LABS: BASO # 0.1 K/uL (0.0-0.2); BASO % 1.3 % (0.0-2.0); EOS # 0.4 K/uL (0.0-0.7); EOS % 4.9 % (0.0-4.0); HEMATOCRIT 41.1 % (35.0-51.0); LYMPH # 1.6 K/uL (1.0-4.3); LYMPH % 21.4 % (20.0-40.0); MEAN CELL VOLUME 89.6 fL (80.0-94.0); MEAN CORPUSCULAR HEMOGLOBIN 29.5 pg (27.0-31.0); MEAN CORPUSCULAR HGB CONC 32.9 g/dL (33.0-37.0); MEAN PLATELET VOLUME 8.3 fL (7.2-11.7); MONO # 0.5 K/uL (0.0-0.8); MONO % 6.5 % (0.0-10.0); RED CELL DISTRIBUTION WIDTH 15.4 % (11.5-14.5); WHITE BLOOD COUNT 7.5 K/uL (4.8-10.8)
[2016-11-23 16:10] VITALS: BP 138/71; PULSE 76; RESP 20; TEMP 98.2; O2SAT 97
--- NOTE | 2016-11-23 17:07 | CP.PCM.PN ---
Subjective - Date & Time of Evaluation Date of Evaluation: 11/23/16 Time of Evaluation: 15:00 - Subjective Subjective: Pt seen and examined today , states feels better , no further diarrhea reported , denies any abdominal pain, N/V, tolerating diet Objective - Vital Signs/Intake and Output Vital Signs (last 24 hours): Temp Pulse Resp BP Pulse Ox 98.2 F 76 20 138/71 97 11/23/16 16:06 11/23/16 16:06 11/23/16 16:06 11/23/16 16:06 11/23/16 16:06 Intake and Output: 11/23/16 11/23/16 06:59 18:59 Intake Total 400 Balance 400 - Medications Medications: Current Medications Home Med (Home Med) 1 unit PO QWK [facility] Home Med (Home Med) 1 unit SC QWK [facility] Dextrose/Sodium Chloride (Dextrose 5%/0.45% Ns 1000 Ml) 1,000 mls @ 120 mls/hr IV .Q8H20M [facility] Last Infusion: 11/23/16 11:06 Dose: 120 mls/hr Metronidazole (Flagyl) 100 mls @ 100 mls/hr IVPB Q8 [facility] Last Admin: 11/23/16 13:06 Dose: 100 mls/hr Ceftriaxone Sodium 1 gm/ (Sodium Chloride) 100 mls @ 100 mls/hr IVPB DAILY [facility] Last Admin: 11/23/16 10:52 Dose: 100 mls/hr Ketorolac Tromethamine (Toradol) 30 mg IVP Q6 PRN PRN Reason: pain Pantoprazole Sodium (Protonix Ec Tab) 40 mg PO DAILY [facility] Last Admin: 11/23/16 13:01 Dose: 40 mg Potassium Chloride (K-Dur 20 Meq Er Tab) 40 meq PO DAILY [facility] Stop: 11/24/16 11:31 Last Admin: 11/23/16 10:52 Dose: 40 meq - Labs Labs: 11/23/16 14:11 11/22/16 04:00 PT 11.2 SECONDS (9.7-12.2) 11/21/16 15:42 INR 1.0 11/21/16 15:42 APTT 30 SECONDS (21-34) 11/21/16 15:42 Assessment and Plan - Assessment and Plan (Free Text) Assessment: A/P 56 yr old male admitted for abdominal pain, nausea/vomiting/diarrhea. diarrhea improved and diet advanced and patient tolerated well stool- c- dif - negative stool culture - negative seen by GI TOday - Continue conservative therapy for now D/W Dr. Barton . stable for discharge home today and f/u with Dr. Beltran office in 1 week Discharge plan discussed with patient , who understand s and agrees with plan RX for flagyl given Pt instructed to returns to ED if symptoms returns
[2016-11-29] MEDS ORDERED: Home Med 1 UNIT SC SCH (19:38)
[2016-11-29] MEDS ORDERED: Home Med 1 UNIT PO SCH (19:41)
== END 2016-11-23 17:11 | disposition home or self-care (01) | DRG 392 ==
LOC: C.ER 12:32 → C.9E 18:14 → C.5T 19:11
PROVIDERS: ADMIT Internal Medicine Cardiovascular Disease; ATTEND Internal Medicine Cardiovascular Disease
DX: K52.9 Noninfective gastroenteritis and colitis, unspecified (principal); E78.5 Hyperlipidemia, unspecified; M06.9 Rheumatoid arthritis, unspecified; E78.00 Pure hypercholesterolemia, unspecified; Z79.899 Other long term (current) drug therapy

== ENCOUNTER 2017-03-04 16:16 | Inpatient (IN) | payer BC ==
[2017-03-04 16:16] VITALS: BMI 28.3
[2017-03-04] MEDS ORDERED: Sodium Chloride 0.9% 1,000 ML ONE (17:03)
[2017-03-04] MEDS ORDERED: Iohexol 240 (50 ml) PO ONE (17:28)
[2017-03-04] MEDS ORDERED: Sodium Chloride 0.9% 1,000 ML IV ONE (17:29)
[2017-03-04] MEDS ORDERED: Iohexol 240 (50 ml) ONE (17:34)
[2017-03-04 17:45] LABS: BASO # 0.1 K/uL (0.0-0.2); BASO % 0.6 % (0.0-2.0); EOS # 0.1 K/uL (0.0-0.7); EOS % 0.8 % (0.0-4.0); LYMPH % 9.9 % (20.0-40.0); MEAN CELL VOLUME 89.8 fL (80.0-94.0); MEAN CORPUSCULAR HEMOGLOBIN 30.3 pg (27.0-31.0); MEAN CORPUSCULAR HGB CONC 33.8 g/dL (33.0-37.0); MEAN PLATELET VOLUME 8.3 fL (7.2-11.7); MONO # 0.8 K/uL (0.0-0.8); MONO % 7.4 % (0.0-10.0); NEUT # 8.5 K/uL (1.8-7.0); NEUT % 81.3 % (50.0-75.0); NRBC % 0.1 % (0.0-2.0); PLATELET COUNT 256 K/uL (130-400); RBC 4.93 Mil/uL (4.40-5.90); RED CELL DISTRIBUTION WIDTH 15.5 % (11.5-14.5); WHITE BLOOD COUNT 10.5 K/uL (4.8-10.8)
[2017-03-04 17:54] LABS: INR 1.1; PROTHROMBIN TIME 12.9 SECONDS (9.7-12.2)
[2017-03-04 18:05] LABS: ALBUMIN 3.9 g/dL (3.5-5.0)
[2017-03-04 18:08] LABS: ALB/GLOB RATIO 1.2 (1.0-2.1); ALT/SGPT 45 U/L (21-72); AST/SGOT 41 U/L (17-59); BLOOD UREA NITROGEN 18 mg/dL (9-20); CALCIUM 8.4 mg/dl (8.6-10.4); GFR AFRICAN-AMERICAN > 60; GFR NON-AFRICAN AMERICAN > 60; LIPASE 86 U/L (23-300)
[2017-03-04 18:10] LABS: BANDS 1 % (0-2); LYMPHOCYTE 8 % (20-40); MONOCYTE 2 % (0-10); NEUTROPHIL 89 % (50-75); PLATELET ESTIMATE NORMAL (NORMAL); TOTAL CELLS COUNTED 100
--- NOTE | 2017-03-04 18:21 | C.PDOC ---
History Of Present Illness 56 yr old male presents to the ER with complaints of left sided abdominal pain for 1 day. Patient also reports 1 episode of dark vomitus. Patient states he had similar pain several months ago and was admited to the hospital for it. Denies fever, chest pain, SOB, nausea, hematochezia, dysuria, incontinence or hematuria. Time Seen by Provider: 03/04/17 16:47 Chief Complaint (Nursing): GI Problem History Per: Patient History/Exam Limitations: no limitations Onset/Duration Of Symptoms: Days (1) Current Symptoms Are (Timing): Still Present Past Medical History Reviewed: Historical Data, Nursing Documentation, Vital Signs Vital Signs: Last Vital Signs Temp 98.3 F 03/04/17 16:21 Pulse 99 H 03/04/17 16:21 Resp 16 03/04/17 16:21 BP 127/80 03/04/17 16:21 Pulse Ox 99 03/04/17 18:23 - Medical History PMH: Arthritis, Hypercholesterolemia, Rheumatoid Arthritis - [facility] INTRODUCTION OF SERUM/TOX/VACCINE INTO MUSCLE, PERC APPROACH (02/11/16) Family History: States: No Known Family Hx - Social History Hx Alcohol Use: No Hx Substance Use: No - Immunization History Hx Tetanus Toxoid Vaccination: No Hx Influenza Vaccination: No Hx Pneumococcal Vaccination: No Review Of Systems Except As Marked, All Systems Reviewed And Found Negative. Constitutional: Negative for: Fever Cardiovascular: Negative for: Chest Pain Respiratory: Negative for: Shortness of Breath Gastrointestinal: Positive for: Vomiting (Dark vomitus ), Abdominal Pain (Left ) , Hematochezia. Negative for: Nausea Genitourinary: Negative for: Dysuria, Incontinence, Hematuria Physical Exam - Physical Exam Appears: Non-toxic, No Acute Distress Skin: Warm, Dry, No Rash Head: Atraumatic, Normacephalic Oral Mucosa: Moist Chest: Symmetrical, No Tenderness Cardiovascular: Rhythm Regular, No Murmur Respiratory: Normal Breath Sounds, No Rales, No Rhonchi, No Stridor, No Wheezing Gastrointestinal/Abdominal: Bowel Sounds, Soft, Tenderness (LUQ>LLQ tenderness ) , No Guarding, No Rebound Extremity: Normal ROM, No Swelling Neurological/Psych: Oriented x3, Normal Speech, Normal Motor ED Course And Treatment - Laboratory Results Result Diagrams: 03/04/17 17:42 03/04/17 17:42 O2 Sat by Pulse Oximetry: 99 (RA) Pulse Ox Interpretation: Normal Medical Decision Making Medical Decision Making: PLAN: * CT - Abd & Pelvis * CBC * CMP * Urinalsyis * Pepcid IVP * Zofran IVP * Sodium Chloride IV Disposition - Disposition Disposition Time: 19:00 Condition: UNKNOWN Forms: [facility] (French) - Clinical Impression Clinical Impression: Abdominal pain - Scribe Statement The provider has reviewed the documentation as recorded by the Quintinibsoheila Torres Provider Attestation: All medical record entries made by the Quintinibsoheila were at my direction and personally dictated by me. I have reviewed the chart and agree that the record accurately reflects my personal performance of the history, physical exam, medical decision making, and the department course for this patient. I have also personally directed, reviewed, and agree with the discharge instructions and disposition. Physician Patient Turnover Patient Signed Over To: Trell Sexton
[2017-03-04 18:53] LABS: URINE BILIRUBIN NEGATIVE (NEGATIVE); URINE CLARITY Clear (Clear); URINE COLOR Yellow (YELLOW); URINE GLUCOSE (UA) NORMAL (Normal); URINE LEUKOCYTE ESTERASE NEG Leu/uL (Negative); URINE NITRATE NEGATIVE (NEGATIVE); URINE PROTEIN NEGATIVE (NEGATIVE); URINE UROBILINOGEN NORMAL mg/dL (0.2-1.0)
[2017-03-04 18:55] LABS: URINE BLOOD NEGATIVE (NEGATIVE)
[2017-03-04] MEDS ORDERED: Iodixanol 320 MG/ML 100 ML BOTTLE IV ONE (19:21)
[2017-03-04] MEDS ORDERED: Morphine 4 MG/ML VIAL ONE (21:13)
[2017-03-04] MEDS: Dextrose 5%/0.45% NS 1,000 ML IV SCH (22:37)
[2017-03-04] MEDS: metroNIDAZOLE IV 500 mg/100 ml 500 MG/100 ML BAG IVPB SCH (22:38)
[2017-03-04 22:49] VITALS: RESP 20
[2017-03-05] MEDS: Dextrose 5%/0.45% NS 1,000 ML IV SCH ×4 (05:19→20:43)
[2017-03-05] MEDS: metroNIDAZOLE IV 500 mg/100 ml 500 MG/100 ML BAG IVPB SCH ×3 (05:24→21:13)
[2017-03-05] MEDS ORDERED: Morphine 4 MG/ML VIAL IVP STA (07:46)
--- NOTE | 2017-03-05 11:41 | CP.PCM.CON ---
<Kit Cueva - Last Filed: 03/05/17 11:45> History of Present Illness - History of Present Illness History of Present Illness: PGY5 GI Fellow Consult Note Patient is a 56yo male with PMHx significant for rheumatoid arthritis on Humira/ MTX, dyslipidemia who presented to the ED with one day of abdominal pain. Pt developed severe left sided abdominal pain suddenly yesterday following eating. He had nausea with one episode of dark colored emesis and loose brown stool. As he could not tolerate pain at home, he came to the ED for evaluation. CT scan performed in the ED was concerning for PSBO/SBO and thus NGT was placed and has been on LIS. He had similar complaints back in October of this year when he was admitted for acute enteritis following a trip to [facility] which resolved with conservative management alone. Currently, he continues to have left sided pain, though decreased in severity. Moreover, he is complaining of sore throat from NGT. Denies any sick contacts at home or recent travel. PMHx: See HPI PSHx: Denies FHx: Father - CAD/CABG Social: Denies tobacco, EtOH and illicit drug use Endo: EGD/Colon - 02/2016 - HP negative gastritis; 4mm AC polyp (tubular adenoma) 12 system ROS performed and negative except where stated above. Past Patient History - Infectious Disease Hx of Infectious Diseases: None - Past Medical History & Family History Past Medical History?: Yes - Past Social History Smoking Status: Never Smoked - CARDIAC Hx Hypercholesterolemia: Yes - PULMONARY Hx Respiratory Disorders: No - NEUROLOGICAL Hx Neurological Disorder: No - HEENT Hx HEENT Problems: No - ENDOCRINE/METABOLIC Hx Endocrine Disorders: No - HEMATOLOGICAL/ONCOLOGICAL Hx Blood Disorders: No - INTEGUMENTARY Hx Dermatological Problems: No - MUSCULOSKELETAL/RHEUMATOLOGICAL Hx Arthritis: Yes Hx Falls: No Hx Rheumatoid Arthritis: Yes - GASTROINTESTINAL Hx Gastrointestinal Disorders: Yes Hx Hemorrhoids: Yes - GENITOURINARY/GYNECOLOGICAL Hx Genitourinary Disorders: No - PSYCHIATRIC Hx Substance Use: No - SURGICAL HISTORY Hx Surgeries: No - ANESTHESIA Hx Anesthesia: No Hx Anesthesia Reactions: No Meds Allergies/Adverse Reactions: Allergies Allergy/AdvReac Type Severity Reaction Status Date / Time No Known Allergies Allergy Verified 03/04/17 16:21 - Medications Medications: Current Medications Benzocaine/Menthol (Cepacol Sore Throat) 1 chad MT Q1H PRN PRN Reason: Sore Throat Dextrose/Sodium Chloride (Dextrose 5%/0.45% Ns 1000 Ml) 1,000 mls @ 130 mls/hr IV .Q7H42M [facility] Last Admin: 03/05/17 05:19 Dose: 130 mls/hr Metronidazole (Flagyl) 500 mg in 100 mls @ 100 mls/hr IVPB Q8 [facility] Last Admin: 03/05/17 05:24 Dose: 100 mls/hr Pneumococcal Polyvalent Vaccine (Pneumovax 23 Vaccine) 0.5 ml IM .ONCE ONE Stop: 03/07/17 14:01 Physical Exam - Constitutional Appears: Non-toxic, No Acute Distress - Eye Exam Eye Exam: EOMI, PERRL - ENT Exam Additional comments: NGT in place to LIS, minimal output - Respiratory Exam Respiratory Exam: Clear to Auscultation Bilateral. absent: Rales, Rhonchi, Wheezes - Cardiovascular Exam Cardiovascular Exam: RRR, +S1, +S2 - GI/Abdominal Exam GI & Abdominal Exam: Normal Bowel Sounds, Soft, Tenderness (left flank, epigastric). absent: Distended, Firm, Guarding, Rigid - Extremities Exam Extremities exam: Positive for: normal inspection. Negative for: pedal edema - Neurological Exam Neurological exam: Alert, Oriented x3 - Psychiatric Exam Psychiatric exam: Normal Affect, Normal Mood - Skin Skin Exam: Dry, Warm Results - Vital Signs Recent Vital Signs: Last Vital Signs Temp 99.3 F 03/05/17 00:00 Pulse 82 03/05/17 00:00 Resp 20 03/05/17 00:00 BP 128/78 03/05/17 00:00 Pulse Ox 96 03/05/17 00:00 - Labs Result Diagrams: 03/04/17 17:42 03/04/17 17:42 Labs: Laboratory Results - last 24 hr 03/04/17 21:58 Stool Occult Blood Negative Assessment & Plan - Assessment and Plan (Free Text) Assessment: Patient is a 56yo male with PMHx significant for rheumatoid arthritis on Humira/ MTX, dyslipidemia who presented to the ED with one day of abdominal pain. -Abdominal pain 2/2 PSBO -RA on Humira/MTX Plan: -Unclear etiology of recurrent small bowel inflammation/obstruction -Possibility of underlying Crohn's disease possible, though prior endoscopy unremarkable for such disease and patient is currently on Humira for RA -Recommend surgical evaluation -NGT with minimal drainage, passing flatus - recommend removing NGT but will defer to surgical consult -Add cepacol for sore throat -Check abdominal flat plate -NPO as long as NGT in place to LIS -May benefit from repeat endoscopic evaluation once acute illness has resolved - Date & Time Date: 03/05/17 Time: 08:30 <TillmanSy - Last Filed: 03/05/17 13:54> Meds - Medications Medications: Current Medications Benzocaine/Menthol (Cepacol Sore Throat) 1 chad MT Q1H PRN PRN Reason: Sore Throat Last Admin: 03/05/17 12:08 Dose: 1 chad Dextrose/Sodium Chloride (Dextrose 5%/0.45% Ns 1000 Ml) 1,000 mls @ 130 mls/hr IV .Q7H42M [facility] Last Admin: 03/05/17 05:19 Dose: 130 mls/hr Metronidazole (Flagyl) 500 mg in 100 mls @ 100 mls/hr IVPB Q8 [facility] Last Admin: 03/05/17 05:24 Dose: 100 mls/hr Ketorolac Tromethamine (Toradol) 30 mg IVP Q6 [facility] Last Admin: 03/05/17 12:08 Dose: 30 mg Pneumococcal Polyvalent Vaccine (Pneumovax 23 Vaccine) 0.5 ml IM .ONCE ONE Stop: 03/07/17 14:01 Results - Vital Signs Recent Vital Signs: Last Vital Signs Temp 99.3 F 03/05/17 00:00 Pulse 82 03/05/17 00:00 Resp 20 03/05/17 00:00 BP 128/78 03/05/17 00:00 Pulse Ox 96 03/05/17 00:00 - Labs Result Diagrams: 03/04/17 17:42 03/04/17 17:42 Labs: Laboratory Results - last 24 hr 03/04/17 21:58 Stool Occult Blood Negative Attending/Attestation - Attestation I have personally seen and examined this patient.: Yes I have fully participated in the care of the patient.: Yes I have reviewed all pertinent clinical information: Yes Notes (Text): 03/05/17 13:52 56 year old male who presents with partial sbo, uncertain etiology. 1. Small bowel obstruction Plan: -s/p NG decompression -improving -ok to dc ngt and trial of clear liquids -consider outpatient colonoscopy -capsule endoscopy may not be patton as high risk for retention in this setting -supportive measures
[2017-03-05] MEDS: Benzocaine/Menthol (Cepacol) Lozenge MT PRN (12:08)
--- NOTE | 2017-03-05 13:10 | RAD ---
Abdomen two views History: Abdominal pain. Comparison: CT dated 03/04/2017 Findings: Persistent dilated loops of small bowel seen within the mid to lower abdomen. Contrast seen throughout the colon and rectum. NG tube extending into the stomach. Impression: Persistent dilated loops of small bowel seen within the mid and lower abdomen which may represent a partial or developing small bowel obstruction. NG tube extending into the stomach.
--- NOTE | 2017-03-05 13:28 | CP.PCM.CON ---
History of Present Illness - History of Present Illness History of Present Illness: General Surgery - Dr. Botello 56M w/ hx RA, on Humira/MTX, who presented to ED yesterday w/ LLQ abdominal pain x1 day. Pt states he's had this pain before and this is the 3rd episode in the past 1 year. He describes LLQ adn Left mid abdominal pain, non-radiating , intermittent pain that is currently resolved. He had associated nausea and vomited dark "coffee ground" liquid at home. Pt also states that he has been having loose stools that appear dark/coffee ground to him. He denies any F/C, SOB/CP. In the ED pt had CT abdomen pelvis done which showed findings suggestive of a partial SBO. An NGT was placed and has been to low intermittent suction, currently with small amount of brown drainage in the canister. Pt currently states he is passing flatus and last BM was yesterday night. No further vomiting episodes. Surgery was consulted for recurrent SBO. PMH: RA, HL PSH: EGD and Colonoscopy w. Dr. Rangel 02/2016 which showed gastritis and 4mm tubular adenoma Meds: Humira/MTX NKDA Review of Systems - Review of Systems All systems: reviewed and no additional remarkable complaints except (as per HPI ) Past Patient History - Infectious Disease Hx of Infectious Diseases: None - Past Medical History & Family History Past Medical History?: Yes - Past Social History Smoking Status: Never Smoked - CARDIAC Hx Hypercholesterolemia: Yes - PULMONARY Hx Respiratory Disorders: No - NEUROLOGICAL Hx Neurological Disorder: No - HEENT Hx HEENT Problems: No - ENDOCRINE/METABOLIC Hx Endocrine Disorders: No - HEMATOLOGICAL/ONCOLOGICAL Hx Blood Disorders: No - INTEGUMENTARY Hx Dermatological Problems: No - MUSCULOSKELETAL/RHEUMATOLOGICAL Hx Arthritis: Yes Hx Falls: No Hx Rheumatoid Arthritis: Yes - GASTROINTESTINAL Hx Gastrointestinal Disorders: Yes Hx Hemorrhoids: Yes - GENITOURINARY/GYNECOLOGICAL Hx Genitourinary Disorders: No - PSYCHIATRIC Hx Substance Use: No - SURGICAL HISTORY Hx Surgeries: No - ANESTHESIA Hx Anesthesia: No Hx Anesthesia Reactions: No Meds Allergies/Adverse Reactions: Allergies Allergy/AdvReac Type Severity Reaction Status Date / Time No Known Allergies Allergy Verified 03/04/17 16:21 - Medications Medications: Current Medications Benzocaine/Menthol (Cepacol Sore Throat) 1 chad MT Q1H PRN PRN Reason: Sore Throat Last Admin: 03/05/17 12:08 Dose: 1 chad Dextrose/Sodium Chloride (Dextrose 5%/0.45% Ns 1000 Ml) 1,000 mls @ 130 mls/hr IV .Q7H42M [facility] Last Admin: 03/05/17 05:19 Dose: 130 mls/hr Metronidazole (Flagyl) 500 mg in 100 mls @ 100 mls/hr IVPB Q8 [facility] Last Admin: 03/05/17 05:24 Dose: 100 mls/hr Ketorolac Tromethamine (Toradol) 30 mg IVP Q6 [facility] Last Admin: 03/05/17 12:08 Dose: 30 mg Pneumococcal Polyvalent Vaccine (Pneumovax 23 Vaccine) 0.5 ml IM .ONCE ONE Stop: 03/07/17 14:01 Physical Exam - Constitutional Appears: No Acute Distress - Head Exam Head Exam: ATRAUMATIC, NORMAL INSPECTION, NORMOCEPHALIC - Eye Exam Eye Exam: Normal appearance - ENT Exam ENT Exam: Mucous Membranes Dry - Respiratory Exam Respiratory Exam: NORMAL BREATHING PATTERN. absent: Respiratory Distress - Cardiovascular Exam Cardiovascular Exam: REGULAR RHYTHM - GI/Abdominal Exam GI & Abdominal Exam: Distended (mildly distended but pt. states close to baseline), Soft. absent: Firm, Guarding, Hernia, Rebound, Rigid, Tenderness - Neurological Exam Neurological exam: Alert, Oriented x3 - Psychiatric Exam Psychiatric exam: Normal Affect, Normal Mood - Skin Skin Exam: Dry, Intact Results - Vital Signs Recent Vital Signs: Last Vital Signs Temp 99.3 F 03/05/17 00:00 Pulse 82 03/05/17 00:00 Resp 20 03/05/17 00:00 BP 128/78 03/05/17 00:00 Pulse Ox 96 03/05/17 00:00 - Labs Result Diagrams: 03/04/17 17:42 03/04/17 17:42 Labs: Laboratory Results - last 24 hr 03/04/17 21:58 Stool Occult Blood Negative - Imaging and Cardiology CT scan - abdomen Status: Image reviewed by me, Report reviewed by me Assessment & Plan - Assessment and Plan (Free Text) Assessment: 56 yo M w/ recurrent partial SBO, resolving -D/C NGT -Clear liquid diet, advance as tolerated and as per GI to low residue -CT reviewed with Dr. Botello - there appears to be a focal area of small bowel thickening/narrowing of the lumen, seen on series 3, image 100-104, this can also be seen on the previous scan done in October 2016 -[facility]. outpatient GI followup and capsule endoscopy to further evaluate the region -No surgical intervention needed DW Dr. Ayan Genao PGY3
--- NOTE | 2017-03-05 13:41 | CT ---
PROCEDURE: CT Abdomen and Pelvis with contrast HISTORY: Left-sided abdominal pain COMPARISON: None. TECHNIQUE: Multiple contiguous axial images were performed through the abdomen pelvis with the use intravenous contrast. Subsequently, sagittal coronal reformatted images were obtained. Radiation dose: Total exam DLP = 374 mGy-cm. This CT exam was performed using one or more of the following dose reduction techniques: Automated exposure control, adjustment of the mA and/or kV according to patient size, and/or use of iterative reconstruction technique. FINDINGS: LOWER THORAX: Small hiatal hernia. Contrast within the esophagus suggests gastroesophageal reflux. LIVER: Unremarkable. No gross lesion or ductal dilatation. GALLBLADDER AND BILE DUCTS: Unremarkable. PANCREAS: Unremarkable. No gross lesion or ductal dilatation. SPLEEN: Unremarkable. ADRENALS: Unremarkable. No mass. KIDNEYS AND URETERS: Unremarkable. No hydronephrosis. No solid mass. Punctate hypodensity in the midpole of the left kidney, too small to adequately characterize. VASCULATURE: Unremarkable. No aortic aneurysm. BOWEL: Dilated loops of small bowel noted at the level of the distal jejunum and proximal ileum. No gross mucosal thickening. APPENDIX: No findings to suggest acute appendicitis. PERITONEUM: Unremarkable. No free fluid. No free air. LYMPH NODES: Unremarkable. No enlarged lymph nodes. BLADDER: Unremarkable. REPRODUCTIVE: Small hydrocele in the right hemiscrotum. Prominent prostate measuring 4.6 x 3.4 x 3.4 centimeters. Calcification noted in the corporeal cavernosa. BONES: No acute fracture. OTHER FINDINGS: None. IMPRESSION: Abnormally dilated mid and distal small bowel loops suggesting partial or early complete small bowel obstruction. Small amount of ascites in the pelvis. Small hiatal hernia. Contrast within the esophagus suggests gastroesophageal reflux. Small hydrocele within the right hemiscrotum. Additional findings as above. These findings were preliminarily reported at 8:50 p.m. on 03/04/[address] Ivone Albarado from [facility].
--- NOTE | 2017-03-05 14:40 | CP.PCM.HP ---
History of Present Illness - History of Present Illness History of Present Illness: COMPREHENSIVE HISTORY & PHYSICAL EXAM HPI 1 day h/o lower abd. pain a/w n/vomiting with dark color stool and emesis . ct showed possible SBO and admitted for further management . PAST HIST. Had 2 similar episode in past with nothing acute findings RA ON DELMA AND MTRX PERSONAL HIST: Smoking. N Alcohol. N Allergy N Travel_- . FAMILY HIST : ROS : Constitutional: Negative for weight change, chills, night sweats, fatigue and usage of assist device. Eyes: Negative for redness, swelling, itching, discharge, vision changes, blurry vision, double vision, glaucoma, cataracts, Ears: Negative for hearing loss, ringing, , tinnitus, vertigo Nose: Negative for rhinorrhea, stuffiness, sniffing, itching, postnasal drip, discoloration, nasal congestion and epistaxis. Throat: Negative for throat clearing, sore throat, hoarseness, difficulty swallowing and difficulty speaking. Respiratory: Negative for cough, , sputum production, chest tightness, wheezing, pleuritic chest pain ,daytime somnolence, chronic cough, hemoptysis, snoring at night, Cardiovascular: Negative for chest pain, palpitations, orthopnea, PND, Edema of legs, leg cramps, angina, claudication, , irregular heartbeat, Neurology: Negative for irritability, muscle weakness, numbness and tingling, seizures, tremors, migraines, slurred speech, syncope, memory loss, mood changes , recurrent headaches Gastrointestinal: Negative for difficulty swallowing, bleeding, , poor appetite , changes in bowel habits, Genitourinary: Negative for frequent urination, hematuria, discharge, incontinence, urinary retention, frequent UTI, Psychiatric: Negative for depression, anxiety/panic, suicidal tendencies, Musculoskeletal: Negative for swollen joints, back pain, , neck pain, morning stiffness of joints, . Skin: Negative for rash, ulcers, itching, dry skin and pigmented lesions. P/E: Constitutional: Appears stated age and in no apparent distress. Head: Normocephalic. Ears: External ear canals patent without inflammation. Tympanic membranes intact with normal light reflex and landmark. Eyes: Pupils are central, bilaterally equal, symmetrical and reacts to light with normal movements and no icterus or pallor. Nose: External nares are patent. Mucosa is pink Mouth-Throat: Good general appearance and condition. No post-pharyngeal/oropharyngeal erythema and tonsillar hypertrophy. Good dental hygiene. Neck-Lymphatic: Neck is supple with normal ROM, no thyromegaly, lymph nodes or masses. JVD is normal with no carotid bruit. Lungs: Clear to percussion and auscultation with bilateral normal air entry. Cardiovascular: S1 and S2 are normal with no murmurs, gallops and rub. GI Exam: No hepatomegaly. Abdomen is soft and tender. No Organomegaly , masses or hernias are evident and bowel sounds are normal and active. Neurology: Higher function and all cranial nerves intact, with no gross motor or sensory deficit. Superficial and deep reflexes are normal with downwards planters. No cerebellar deficit with normal gait. Musculoskeletal: No tender spots with normal curvature of the spine with no swelling or restricted ROM of the small and large joints. Extremities: Homans sign absent. Intact pulses with no pitting edema, calf tenderness or skin color changes. Skin: No rash, eruptions or abnormal skin pigmentation LAB/RADIOLOGY: ASSESMENT : SBO etiology unclear Gastritis PLAN: gi/surgical eval Present on Admission - Present on Admission Any Indicators Present on Admission: No Past Patient History - Infectious Disease Hx of Infectious Diseases: None - Past Medical History & Family History Past Medical History?: Yes - Past Social History Smoking Status: Never Smoked - CARDIAC Hx Hypercholesterolemia: Yes - PULMONARY Hx Respiratory Disorders: No - NEUROLOGICAL Hx Neurological Disorder: No - HEENT Hx HEENT Problems: No - ENDOCRINE/METABOLIC Hx Endocrine Disorders: No - HEMATOLOGICAL/ONCOLOGICAL Hx Blood Disorders: No - INTEGUMENTARY Hx Dermatological Problems: No - MUSCULOSKELETAL/RHEUMATOLOGICAL Hx Arthritis: Yes Hx Falls: No Hx Rheumatoid Arthritis: Yes - GASTROINTESTINAL Hx Gastrointestinal Disorders: Yes Hx Hemorrhoids: Yes - GENITOURINARY/GYNECOLOGICAL Hx Genitourinary Disorders: No - PSYCHIATRIC Hx Substance Use: No - SURGICAL HISTORY Hx Surgeries: No - ANESTHESIA Hx Anesthesia: No Hx Anesthesia Reactions: No Meds Allergies/Adverse Reactions: Allergies Allergy/AdvReac Type Severity Reaction Status Date / Time No Known Allergies Allergy Verified 03/04/17 16:21 Results - Vital Signs Recent Vital Signs: Last Vital Signs Temp 99.3 F 03/05/17 00:00 Pulse 82 03/05/17 00:00 Resp 20 03/05/17 00:00 BP 128/78 03/05/17 00:00 Pulse Ox 96 03/05/17 00:00 - Labs Result Diagrams: 03/06/17 07:00 03/06/17 07:00 Labs: Laboratory Results - last 24 hr 03/04/17 21:58 Stool Occult Blood Negative
[2017-03-06 00:34] VITALS: O2SAT 97
[2017-03-06] MEDS: metroNIDAZOLE IV 500 mg/100 ml 500 MG/100 ML BAG IVPB SCH ×2 (05:23→13:36)
[2017-03-06] MEDS: Dextrose 5%/0.45% NS 1,000 ML IV SCH ×2 (05:23→12:09)
[2017-03-06 07:12] LABS: BASO # 0.1 K/uL (0.0-0.2); BASO % 0.8 % (0.0-2.0); EOS # 0.4 K/uL (0.0-0.7); EOS % 5.1 % (0.0-4.0); HEMOGLOBIN 12.4 g/dL (12.0-18.0); LYMPH # 1.2 K/uL (1.0-4.3); LYMPH % 15.1 % (20.0-40.0); MEAN CELL VOLUME 89.2 fL (80.0-94.0); MEAN CORPUSCULAR HEMOGLOBIN 29.5 pg (27.0-31.0); MEAN CORPUSCULAR HGB CONC 33.1 g/dL (33.0-37.0); MEAN PLATELET VOLUME 8.3 fL (7.2-11.7); MONO # 0.5 K/uL (0.0-0.8); MONO % 6.1 % (0.0-10.0); NEUT # 5.9 K/uL (1.8-7.0); NEUT % 72.9 % (50.0-75.0); RBC 4.21 Mil/uL (4.40-5.90); RED CELL DISTRIBUTION WIDTH 15.1 % (11.5-14.5); WHITE BLOOD COUNT 8.2 K/uL (4.8-10.8)
--- NOTE | 2017-03-06 07:21 | CP.PCM.PN ---
<Jelena Durant - Last Filed: 03/06/17 12:48> Subjective - Date & Time of Evaluation Date of Evaluation: 03/06/17 Time of Evaluation: 06:30 - Subjective Subjective: PGY4 GI Progress Note Pt seen and examined bedside No complaints at this time NG discontinued yesterday tolerating liquids BM yesterday Denies any abd pain, nausea, and vomiting ROS: 12-point ROS conducted, other than what was mentioned above its otherwise neg Objective - Vital Signs/Intake and Output Vital Signs (last 24 hours): Temp Pulse Resp BP Pulse Ox 98.7 F 83 20 112/63 97 03/06/17 00:00 03/06/17 00:00 03/06/17 00:00 03/06/17 00:00 03/06/17 00:00 Intake and Output: 03/06/17 03/06/17 06:59 18:59 Intake Total 1290 Balance 1290 - Medications Medications: Current Medications Benzocaine/Menthol (Cepacol Sore Throat) 1 chad MT Q1H PRN PRN Reason: Sore Throat Last Admin: 03/05/17 12:08 Dose: 1 chad Famotidine (Pepcid) 20 mg IVP DAILY [facility] Dextrose/Sodium Chloride (Dextrose 5%/0.45% Ns 1000 Ml) 1,000 mls @ 130 mls/hr IV .Q7H42M [facility] Last Admin: 03/06/17 05:23 Dose: 130 mls/hr Metronidazole (Flagyl) 500 mg in 100 mls @ 100 mls/hr IVPB Q8 [facility] Last Admin: 03/06/17 05:23 Dose: 100 mls/hr Ketorolac Tromethamine (Toradol) 30 mg IVP Q4 PRN PRN Reason: Pain, severe (8-10) Last Admin: 03/06/17 02:49 Dose: 30 mg Ondansetron HCl (Zofran Inj) 4 mg IVP Q4 PRN PRN Reason: Nausea/Vomiting Pneumococcal Polyvalent Vaccine (Pneumovax 23 Vaccine) 0.5 ml IM .ONCE ONE Stop: 03/07/17 14:01 - Labs Labs: 03/06/17 07:00 PT 12.9 SECONDS (9.7-12.2) H 03/04/17 17:42 INR 1.1 03/04/17 17:42 APTT 72 SECONDS (21-34) H 03/04/17 17:42 - Constitutional Appears: Well, No Acute Distress - Head Exam Head Exam: ATRAUMATIC - Eye Exam Eye Exam: Normal appearance - ENT Exam ENT Exam: Mucous Membranes Moist, Normal Exam - Respiratory Exam Respiratory Exam: Clear to Ausculation Bilateral, NORMAL BREATHING PATTERN. absent: Rales, Rhonchi, Wheezes, Respiratory Distress - Cardiovascular Exam Cardiovascular Exam: REGULAR RHYTHM, +S1 - GI/Abdominal Exam GI & Abdominal Exam: Soft, Normal Bowel Sounds. absent: Firm, Guarding, Rigid, Tenderness, Organomegaly - Extremities Exam Extremities Exam: Normal Inspection - Neurological Exam Neurological Exam: Alert, Awake, Oriented x3 - Psychiatric Exam Psychiatric exam: Normal Affect, Normal Mood - Skin Skin Exam: Dry, Intact, Normal Color, Warm Assessment and Plan - Assessment and Plan (Free Text) Assessment: Patient is a 56yo male with PMHx significant for rheumatoid arthritis on Humira/ MTX, dyslipidemia who presented to the ED with one day of abdominal pain. -Abdominal pain 2/2 PSBO -RA on Humira/MTX Plan: -Unclear etiology of recurrent small bowel inflammation/obstruction -Possibility of underlying Crohn's disease possible, though prior endoscopy unremarkable for such disease and patient is currently on Humira for RA -repeat colon and EGD as oupt in 6-8 weeks, established pt of Dr. Jc -No surg intervention as per notes -Would not recommend capsule at this time -advance diet as tolerated -will sign off for now, please let us know if we can be of further assistance will D/w Dr. Llamas <Muriel THOMAS,[facility] - Last Filed: 03/06/17 14:16> Objective - Vital Signs/Intake and Output Vital Signs (last 24 hours): Temp Pulse Resp BP Pulse Ox 98.7 F 83 20 112/63 97 03/06/17 00:00 03/06/17 00:00 03/06/17 00:00 03/06/17 00:00 03/06/17 00:00 Intake and Output: 03/06/17 03/06/17 06:59 18:59 Intake Total 1290 Balance 1290 - Medications Medications: Current Medications Benzocaine/Menthol (Cepacol Sore Throat) 1 chad MT Q1H PRN PRN Reason: Sore Throat Last Admin: 03/06/17 09:38 Dose: 1 chad Famotidine (Pepcid) 20 mg IVP DAILY [facility] Last Admin: 03/06/17 09:32 Dose: 20 mg Dextrose/Sodium Chloride (Dextrose 5%/0.45% Ns 1000 Ml) 1,000 mls @ 130 mls/hr IV .Q7H42M [facility] Last Admin: 03/06/17 12:09 Dose: Not Given Metronidazole (Flagyl) 500 mg in 100 mls @ 100 mls/hr IVPB Q8 [facility] Last Admin: 03/06/17 13:36 Dose: 100 mls/hr Ketorolac Tromethamine (Toradol) 30 mg IVP Q4 PRN PRN Reason: Pain, severe (8-10) Last Admin: 03/06/17 09:32 Dose: 30 mg Ondansetron HCl (Zofran Inj) 4 mg IVP Q4 PRN PRN Reason: Nausea/Vomiting Pneumococcal Polyvalent Vaccine (Pneumovax 23 Vaccine) 0.5 ml IM .ONCE ONE Stop: 03/07/17 14:01 - Labs Labs: 03/06/17 07:00 03/06/17 07:00 PT 12.9 SECONDS (9.7-12.2) H 03/04/17 17:42 INR 1.1 03/04/17 17:42 APTT 72 SECONDS (21-34) H 03/04/17 17:42 Attending/Attestation - Attestation I have personally seen and examined this patient.: Yes I have fully participated in the care of the patient.: Yes I have reviewed all pertinent clinical information, including history, physical exam and plan: Yes Notes (Text): 03/06/17 14:14 Patient seen with Gi fellow on rounds this am. Agree with assessment and plan with following exceptions and additions. This is a 56 year old male who presents with partial sbo, uncertain etiology with previous admission with same presentation. Did not follow as outpatient for colonoscopy. Imaging concerning for small bowel stricture ? Now resolved symptoms and passing flatus and moving bowels. Will advance diet as tolerated and give outpatient appointment with Dr Rangel for colonoscopy. Thank you for letting us participate in the care of your patient.
[2017-03-06 07:28] LABS: ALBUMIN 3.3 g/dL (3.5-5.0)
[2017-03-06 07:30] LABS: GFR AFRICAN-AMERICAN > 60; GFR NON-AFRICAN AMERICAN > 60
[2017-03-06 07:31] LABS: ALB/GLOB RATIO 1.1 (1.0-2.1); ALT/SGPT 35 U/L (21-72); AST/SGOT 30 U/L (17-59); BLOOD UREA NITROGEN 9 mg/dL (9-20); CALCIUM 7.8 mg/dl (8.6-10.4)
[2017-03-06] MEDS ORDERED: Potassium Chloride 20 mEq ER Tab PO STA (08:33)
[2017-03-06] MEDS: Benzocaine/Menthol (Cepacol) Lozenge MT PRN (09:38)
--- NOTE | 2017-03-06 13:17 | CP.PCM.DIS ---
Provider - Provider Date of Admission: 03/04/17 21:27 Attending physician: Edel Barton MD Time Spent in preparation of Discharge (in minutes): 30 Hospital Course - Lab Results Lab Results: Most Recent Lab Values WBC 8.2 K/uL (4.8-10.8) 03/06/17 07:00 RBC 4.21 Mil/uL (4.40-5.90) L 03/06/17 07:00 Hgb 12.4 g/dL (12.0-18.0) D 03/06/17 07:00 Hct 37.5 % (35.0-51.0) 03/06/17 07:00 MCV 89.2 fL (80.0-94.0) 03/06/17 07:00 MCH 29.5 pg (27.0-31.0) 03/06/17 07:00 MCHC 33.1 g/dL (33.0-37.0) 03/06/17 07:00 RDW 15.1 % (11.5-14.5) H 03/06/17 07:00 Plt Count 210 K/uL (130-400) 03/06/17 07:00 MPV 8.3 fL (7.2-11.7) 03/06/17 07:00 Neut % (Auto) 72.9 % (50.0-75.0) 03/06/17 07:00 Lymph % (Auto) 15.1 % (20.0-40.0) L 03/06/17 07:00 [place] % (Auto) 6.1 % (0.0-10.0) 03/06/17 07:00 Eos % (Auto) 5.1 % (0.0-4.0) H 03/06/17 07:00 Baso % (Auto) 0.8 % (0.0-2.0) 03/06/17 07:00 Neut # 5.9 K/uL (1.8-7.0) 03/06/17 07:00 Lymph # 1.2 K/uL (1.0-4.3) 03/06/17 07:00 [place] # 0.5 K/uL (0.0-0.8) 03/06/17 07:00 Eos # 0.4 K/uL (0.0-0.7) 03/06/17 07:00 Baso # 0.1 K/uL (0.0-0.2) 03/06/17 07:00 Neutrophils % (Manual) 89 % (50-75) H 03/04/17 17:42 Band Neutrophils % 1 % (0-2) 03/04/17 17:42 Lymphocytes % (Manual) 8 % (20-40) L 03/04/17 17:42 Monocytes % (Manual) 2 % (0-10) 03/04/17 17:42 Platelet Estimate Normal (NORMAL) 03/04/17 17:42 RBC Morphology Normal 03/04/17 17:42 PT 12.9 SECONDS (9.7-12.2) H 03/04/17 17:42 INR 1.1 03/04/17 17:42 APTT 72 SECONDS (21-34) H 03/04/17 17:42 Sodium 139 mmol/L (132-148) 03/06/17 07:00 Potassium 3.2 mmol/L (3.6-5.2) L 03/06/17 07:00 Chloride 102 mmol/L (98-107) 03/06/17 07:00 Carbon Dioxide 25 mmol/L (22-30) 03/06/17 07:00 Anion Gap 15 (10-20) 03/06/17 07:00 BUN 9 mg/dL (9-20) 03/06/17 07:00 Creatinine 0.8 MG/DL (0.8-1.5) 03/06/17 07:00 Est GFR ( Amer) > 60 03/06/17 07:00 Est GFR (Non-Af Amer) > 60 03/06/17 07:00 Random Glucose 84 mg/dL (75-110) 03/06/17 07:00 Calcium 7.8 mg/dl (8.6-10.4) L 03/06/17 07:00 Total Bilirubin 1.0 mg/dL (0.2-1.3) 03/06/17 07:00 AST 30 U/L (17-59) 03/06/17 07:00 ALT 35 U/L (21-72) 03/06/17 07:00 Alkaline Phosphatase 64 U/L (38-126) 03/06/17 07:00 Total Protein 6.3 g/dL (6.3-8.3) 03/06/17 07:00 Albumin 3.3 g/dL (3.5-5.0) L 03/06/17 07:00 Globulin 3.0 gm/dL (2.2-3.9) 03/06/17 07:00 Albumin/Globulin Ratio 1.1 (1.0-2.1) 03/06/17 07:00 Lipase 86 U/L (23-300) 03/04/17 17:42 Urine Color Yellow (YELLOW) 03/04/17 18:35 Urine Clarity Clear (Clear) 03/04/17 18:35 Urine pH 6.0 (5.0-8.0) 03/04/17 18:35 Ur Specific [place] 1.014 (1.003-1.030) 03/04/17 18:35 Urine Protein Negative mg/dL (NEGATIVE) 03/04/17 18:35 Urine Glucose (UA) Normal mg/dL (Normal) 03/04/17 18:35 Urine Ketones Negative mg/dL (NEGATIVE) 03/04/17 18:35 Urine Blood Negative (NEGATIVE) 03/04/17 18:35 Urine Nitrate Negative (NEGATIVE) 03/04/17 18:35 Urine Bilirubin Negative (NEGATIVE) 03/04/17 18:35 Urine Urobilinogen Normal mg/dL (0.2-1.0) 03/04/17 18:35 Ur Leukocyte Esterase Neg Wally/uL (Negative) 03/04/17 18:35 Urine WBC (Auto) < 1 /hpf (0-5) 03/04/17 18:35 Urine RBC (Auto) 1 /hpf (0-3) 03/04/17 18:35 Stool Occult Blood Negative (NEGATIVE) 03/04/17 21:58 - Hospital Course Hospital Course: 1 day h/o lower abd. pain a/w n/vomiting with dark color stool and emesis . ct showed possible SBO and admitted for further management . PAST HIST. Had 2 similar episode in past with nothing acute findings RA ON DELMA AND MTRX PT WAS EVALUATED BY SURGERY AND CLEARED FOR DISCHARGE THERE WAS A LESION IN SB PER CT REVIEWED BY SURGERY GI CLEARED FOR D/C WILL F/U DR RANGEL Discharge Exam - Head Exam Head Exam: ATRAUMATIC Discharge Plan - Follow Up Plan Condition: UNKNOWN Disposition: HOME/ ROUTINE Additional Instructions: FOLLOW UP WITH DR. BARTON IN THE OFFICE WITHIN 1 WEEK--CALL FOR APPT TIME. FOLLOW UP WITH DR. RANGEL IN THE OFFICE WITHIN 1-2 WEEKS--CALL FOR APPT TIME. IN ABOUT 6-8 WEEKS, IT IS RECOMMENDED THAT YOU HAVE UPPER AND LOWER ENDOSCOPY DONE WELL A CAPSULE ENDOSCOPY. THIS CAN BE SCHEDULED AND DISCUSSED WITH DR. RANGEL WHEN YOU SEE HIM IN THE OFFICE. TAKE ALL MEDICATIONS EXACTLY PRESCRIBED. FOR FURTHER QUESTIONS, CONTACT DR. BARTON'S OFFICE. Referrals: Veronika Botello MD [Staff Provider] - Mikhail Rnagel MD [Staff Provider] - Edel Barton MD [Staff Provider] -
--- NOTE | 2017-03-06 14:12 | CP.PCM.PN ---
Subjective - Date & Time of Evaluation Date of Evaluation: 03/06/17 Time of Evaluation: 14:10 - Subjective Subjective: PT CLEARED FOR D/C BY SURGERY AND GI. PT'S BROUGHT HIM A VEGGIE SANDWICH BEFORE DIET ORDER WAS OFFICIALLY CHANGED PER NURSING STAFF, NORM ARORA, WHICH PT TOLERATED WELL. PT TO F/U WITH F/U WITH DR. ROWE IN THE OFFICE WITHIN 1 WEEK. TO ALSO F/U WITH PMD (DR. Oconnor OR DR. Ke CLAYTON) OR DR. DAVILA IN 1 WEEK. TO CONTINUE ALL HOME MEDS. NO NEW RX TO BE GIVEN. D/C AND F/U INFORMATION DISCUSSED AT LENGTH WITH THE PT AND AT BEDSIDE. NO FURTHER ORDERS. Objective - Vital Signs/Intake and Output Vital Signs (last 24 hours): Temp Pulse Resp BP Pulse Ox 98.7 F 83 20 112/63 97 03/06/17 00:00 03/06/17 00:00 03/06/17 00:00 03/06/17 00:00 03/06/17 00:00 Intake and Output: 03/06/17 03/06/17 06:59 18:59 Intake Total 1290 Balance 1290 - Medications Medications: Current Medications Benzocaine/Menthol (Cepacol Sore Throat) 1 chad MT Q1H PRN PRN Reason: Sore Throat Last Admin: 03/06/17 09:38 Dose: 1 chad Famotidine (Pepcid) 20 mg IVP DAILY [facility] Last Admin: 03/06/17 09:32 Dose: 20 mg Dextrose/Sodium Chloride (Dextrose 5%/0.45% Ns 1000 Ml) 1,000 mls @ 130 mls/hr IV .Q7H42M [facility] Last Admin: 03/06/17 12:09 Dose: Not Given Metronidazole (Flagyl) 500 mg in 100 mls @ 100 mls/hr IVPB Q8 [facility] Last Admin: 03/06/17 13:36 Dose: 100 mls/hr Ketorolac Tromethamine (Toradol) 30 mg IVP Q4 PRN PRN Reason: Pain, severe (8-10) Last Admin: 03/06/17 09:32 Dose: 30 mg Ondansetron HCl (Zofran Inj) 4 mg IVP Q4 PRN PRN Reason: Nausea/Vomiting Pneumococcal Polyvalent Vaccine (Pneumovax 23 Vaccine) 0.5 ml IM .ONCE ONE Stop: 03/07/17 14:01 - Labs Labs: 03/06/17 07:00 03/06/17 07:00 PT 12.9 SECONDS (9.7-12.2) H 03/04/17 17:42 INR 1.1 03/04/17 17:42 APTT 72 SECONDS (21-34) H 03/04/17 17:42
[2017-03-06 14:36] VITALS: BP 127/72; PULSE 78; TEMP 98.5
--- NOTE | 2017-03-06 15:56 | CP.PCM.PN ---
Subjective - Date & Time of Evaluation Date of Evaluation: 03/06/17 Time of Evaluation: 07:00 - Subjective Subjective: GENERAL SURGERY PROGRESS NOTE FOR DR. BARRIOS Patient seen and examined at bedside. He reports having a headache but no abdominal pain. He denies nausea or vomiting. He had a BM yesterday and another one this morning. He is passing flatus. He is tolerating his CLD and would like more food. Objective - Vital Signs/Intake and Output Vital Signs (last 24 hours): Temp Pulse Resp BP Pulse Ox 98.5 F 78 20 127/72 97 03/06/17 08:10 03/06/17 08:10 03/06/17 08:10 03/06/17 08:10 03/06/17 08:10 Intake and Output: 03/06/17 03/06/17 06:59 18:59 Intake Total 1290 1490 Balance 1290 1490 - Medications Medications: Current Medications Benzocaine/Menthol (Cepacol Sore Throat) 1 chad MT Q1H PRN PRN Reason: Sore Throat Last Admin: 03/06/17 09:38 Dose: 1 chad Famotidine (Pepcid) 20 mg IVP DAILY [facility] Last Admin: 03/06/17 09:32 Dose: 20 mg Dextrose/Sodium Chloride (Dextrose 5%/0.45% Ns 1000 Ml) 1,000 mls @ 130 mls/hr IV .Q7H42M [facility] Last Admin: 03/06/17 12:09 Dose: Not Given Metronidazole (Flagyl) 500 mg in 100 mls @ 100 mls/hr IVPB Q8 [facility] Last Admin: 03/06/17 13:36 Dose: 100 mls/hr Ketorolac Tromethamine (Toradol) 30 mg IVP Q4 PRN PRN Reason: Pain, severe (8-10) Last Admin: 03/06/17 09:32 Dose: 30 mg Ondansetron HCl (Zofran Inj) 4 mg IVP Q4 PRN PRN Reason: Nausea/Vomiting Pneumococcal Polyvalent Vaccine (Pneumovax 23 Vaccine) 0.5 ml IM .ONCE ONE Stop: 03/07/17 14:01 - Labs Labs: 03/06/17 07:00 03/06/17 07:00 PT 12.9 SECONDS (9.7-12.2) H 03/04/17 17:42 INR 1.1 03/04/17 17:42 APTT 72 SECONDS (21-34) H 03/04/17 17:42 - Constitutional Appears: Non-toxic, No Acute Distress - Head Exam Head Exam: ATRAUMATIC, NORMAL INSPECTION - Eye Exam Eye Exam: EOMI, Normal appearance - Respiratory Exam Respiratory Exam: NORMAL BREATHING PATTERN. absent: Respiratory Distress - Cardiovascular Exam Cardiovascular Exam: +S1, +S2 - GI/Abdominal Exam GI & Abdominal Exam: Rigid, Soft. absent: Distended, Firm, Guarding, Tenderness , Rebound - Neurological Exam Neurological Exam: Alert, Awake, Oriented x3 - Psychiatric Exam Psychiatric exam: Normal Affect, Normal Mood Assessment and Plan - Assessment and Plan (Free Text) Assessment: 56yo M with recurrent partial SBO, resolved - Having regular BMs and passing flatus - Tolerating CLD - Will advance diet - Recommend outpatient GI follow up and capsule endoscopy to further evaluate small bowel - No surgical intervention necessary - Discussed plan with Dr. Ayan Beckett PGY-3
[2017-03-07] MEDS ORDERED: Pneumococcal 23-Valent Vaccine IM ONE (14:00)
== END 2017-03-06 15:45 | disposition home or self-care (01) | DRG 389 ==
LOC: C.ER 16:16 → C.9E 21:27 → C.3T 22:23
PROVIDERS: ADMIT Internal Medicine Cardiovascular Disease; ATTEND Internal Medicine Cardiovascular Disease
DX: K56.60 Unspecified intestinal obstruction (principal); R18.8 Other ascites; K44.9 Diaphragmatic hernia without obstruction or gangrene; K21.9 Gastro-esophageal reflux disease without esophagitis; N43.3 Hydrocele, unspecified; E78.00 Pure hypercholesterolemia, unspecified; E78.5 Hyperlipidemia, unspecified; M06.9 Rheumatoid arthritis, unspecified; K29.70 Gastritis, unspecified, without bleeding; Z79.899 Other long term (current) drug therapy; J02.9 Acute pharyngitis, unspecified